=== PATIENT | male | born 1985 | race Caucasian/White ===

== ENCOUNTER 2023-06-09 13:42 | Emergency (ER) | payer OTHER, SELFPAY ==
[2023-06-09 13:51] VITALS: BP 184/118
--- NOTE | 2023-06-09 15:30 | ED.GENMED ---
History of Present Illness
General
Chief Complaint: Throat Problem
Source: patient and spouse
Exam Limitations: none
Time Seen by Provider: 06/09/23 15:18
Travel History
Have you had any contact with someone who has COVID-19?: No
Do you have any symptoms of coronavirus? Fever > 100 degrees, chills, cough, shortness of breath, sore throat, loss of taste or smell, muscle aches, or headache?: No
History of Present Illness
History of Present Illness:
37-year-old male complaining of throat pain and a foreign body sensation since midnight last night. [place] like there might be something in his throat. Vomited last evening. Symptoms have been ongoing. Seen in urgent care with a negative strep.
Sent here for globus sensation. Symptoms are not localized to 1 side more of a generalized throat symptoms. No chest pain shortness of breath nausea fever. Able to swallow liquids out difficulty. Some pain with swallowing solids
Past History
Past History
ED Past Medical History: Other (Pericarditis/Knowles's palsy/GERD)
ED Past Surgical History: Orthopedic
Review of Systems
Review of Systems
All Other Systems: Not applicable
Respiratory: Reports no symptoms
Cardiac: Reports no symptoms
ABD/GI: Reports no symptoms
Phy Exam
Physical Exam
Physical Exam:
GENERAL: Alert and oriented in no apparent distress
EYE: Orbits normal.
NECK: Supple. Mild submandibular adenopathy.
ENT: Pharynx with diffuse erythema of the tonsils and posterior pharynx and mild erythema of the uvula. Very small amount of white dots to the left tonsil easily removed with a tongue blade. No obvious KYLIE tonsillar abscess. No foreign body
CARDIAC: Regular rate and rhythm without any obvious murmurs.
LUNGS: Clear breath sounds,normal
ABDOMEN: Soft, without focal tenderness or distention
NEUROLOGICAL: Alert and oriented , grossly non-focal
SKIN: Warm and dry
PSYCH: Normal and appropriate interaction.
Course
Orders/Labs/Results
Orders:
Orders
06/09/23 15:28
EKG [Electrocardiogram (*1)] Urgent
Reason for Study: Other
Other Reason for Exam: Throat pain/hypertension
Soft Tissue, Neck [CR Soft Tissue Neck ] Urgent
Comment:
Reason For Exam: Throat pain/foreign body sensation
06/09/23 15:29
EKG- Treatment ONCE
06/09/23 17:37
Cephalexin Monohydrate [Keflex] 500 mg PO NOW STA
Vital Signs
Initial and Last Documented VS:
Initial Vital Signs
Temp Pulse Resp BP Pulse Ox
98.3 F 98 18 184/118 99
06/09/23 13:51 06/09/23 13:51 06/09/23 13:51 06/09/23 13:51 06/09/23 13:51
Last Documented Vital Signs
Temp Pulse Resp BP Pulse Ox
98.3 F 97 18 133/94 99
06/09/23 13:51 06/09/23 17:08 06/09/23 17:08 06/09/23 17:08 06/09/23 17:08
*Radiology
Radiology exam reviewed: preliminary read by ED provider (Negative) and radiology read reviewed (Negative)
*Pulse Oximetry
Patient hypoxic: no
*EKG
Interpreted by ED Provider?: Yes
Interpretation: abnormal
Comparison EKG: no comparison EKG present
Heart Rate: 68
Rate: normal
Rhythm: sinus
[place]: normal axis
Interval: normal interval
QRS Pattern: normal QRS
Ischemia: non-specific ST changes
*Critical Care Note
Total Time (30-74mins, 75-104mins- exclusive of procedures): Not Applicable
Update Note
Update Note:
Patient is remained stable and nontoxic. Clinically this is clearly a posterior pharyngeal issue. There is clear erythema to both tonsils and to the uvula. Patient has no chest pain shortness of breath nausea diaphoresis. EKG is essentially
normal. There are some nonspecific inferior changes but do not feel this is an acute cardiac issue. Blood pressure is much improved with a appropriate sized cuff. Discussed with ENT who will follow-up.
ED Attending Note
-
Portions of this chart may have been created with voice recognition software.� Occasional wrong word or��sound alike� substitutions may have occurred due to the inherent limitations of voice recognition software.
Discharge Plan
Departure
Patient Disposition: Home (Routine Discharge)
Date of Disposition: 06/09/23
Time of Disposition: 17:38
Patient with high blood pressure during this ER visit?: Yes
Discharge Problem:
PHARYNGOTONSILLITIS
Instructions: Sore Throat, Adult (DC), BLOOD PRESSURE
Prescriptions:
New
cephalexin 500 mg capsule
500 mg PO QID 7 Days Qty: 28 0RF
Referrals:
Beau Cates PA [Family Provider] -
Jamie Leong MD [Active] - Follow up in 2-3 days
Activity Restrictions/Additional Instructions:
Call the ENT doctor tomorrow morning for close follow-up
Antibiotics were called to your pharmacy
Return with increasing trouble swallowing pain with swallowing fever chest pain shortness of breath or any other unusual symptoms
Your blood pressure was elevated and should be followed up closely with your primary physician
Interventions
Interventions:
*Risk Screen - Suicide Last Done: 06/09/23 17:50
*General Assessment Last Done: 06/09/23 17:50
*Neglect/Abuse Screening Last Done: 06/09/23 17:50
ED- Fall Risk Assessment Last Done: 06/09/23 17:50
*ED COVID-19 Vaccine History Last Done: 06/09/23 17:50
*Nursing Disposition Last Done: 06/09/23 17:52
ED-EENT Assessment Last Done: 06/09/23 16:25
ED- Pulmonary Assessment Last Done: 06/09/23 16:25
Discharge Date and Time
Discharge Date/Time: 06/09/23 17:53
Print Language: CYMRO
[2023-06-09 17:08] VITALS: BP 133/94
[2023-06-09] MEDS: KEFLEX 500 MG PO (17:50)
== END 2023-06-09 17:53 | disposition home or self-care (01) ==
LOC: EMR 13:42
PROVIDERS: EMERGENCY PHYSICIAN Emergency Medicine; FAMILY PHYSICIAN Physician Assistant
DX: B00.2 Herpesviral gingivostomatitis and pharyngotonsillitis (principal); I10 Essential (primary) hypertension
CPT/HCPCS: 99284; 70360; 93005

== ENCOUNTER 2024-11-16 00:15 | Emergency (ER) | payer OTHER, SELFPAY ==
[2024-11-16 00:19] VITALS: BP 187/111
[2024-11-16 00:28] VITALS: BMI 36.2
[2024-11-16 00:29] VITALS: BP 154/87
--- NOTE | 2024-11-16 00:34 | ED.GENMED ---
History of Present Illness
General
Chief Complaint: Chest Pain
Source: patient and spouse
Exam Limitations: none
Time Seen by Provider: 11/16/24 00:26
Nursing documentation reviewed up to this point in time: agreed with
History of Present Illness
History of Present Illness:
39-year-old male presenting to the emergency department today with concerns of mid chest pressure started 1 hour ago while driving from a concert. Pain has significantly improved since. No associated nausea vomiting numbness weakness shortness of
breath diaphoresis. No radiation or referred pain.
Past History
Past History
ED Past Medical History: Other (Pericarditis/Knowles's palsy/GERD)
ED Past Surgical History: Orthopedic
Review of Systems
Review of Systems
Allergies reviewed?: Yes
All Other Systems: ROS reviewed and negative except as documented in HPI and ROS
Phy Exam
Physical Exam
Physical Exam:
GENERAL: Alert , in no apparent distress
EYE: pupils equal and reactive
NECK: Supple, no significant adenopathy.
ENT: o/p clr, mmm.
CARDIAC: Regular rate and rhythm .
LUNGS: Clear breath sounds bilaterally, no acute respiratory distress, no wheezes/rales/rhonchi
ABDOMEN: Soft, without focal tenderness, no r/g, no cvat
NEUROLOGICAL: Alert and oriented, no focal neuro deficits
SKIN: Warm and dry, skin intact.
MUSCULOSKELETAL: No edema, well perfused.
PSYCH: Normal and appropriate interaction.
Scores
Heart Score for Chest Pain Patients
STEMI patient?: No
History: Slightly or Non-Suspicious
ECG: Normal
Age: </= 45 years
Risk Factors: No Risk Factors
Troponin: </= Normal Limit
Heart Score for Chest Pain Patients: 0
Heart Score Risk: 2.5% MACE over next 6 weeks
Course
Orders/Labs/Results
Orders:
Orders
11/16/24 00:18
ECG [Electrocardiogram (*1)] Urgent
Reason for Study: Chest Pain
11/16/24 00:19
EKG- Treatment ONCE
11/16/24 00:23
Cardiac Monitoring- Treatment ONCE
IV Insert/Care/Rem.- Treatment PRN
CR Chest - 2 Views Urgent
Comment:
Reason For Exam: respiratory distress
O2 Therapy [RESP] Urgent
Titrate/Wean O2 to maintain O2 sat greater than (%): 93
Special Instructions: TO MAINTAIN CONTINUOUS O2 SATS >/= 93%
Pulse Ox/cont/shift [RESP] Urgent
Quantity: 1
Special Instructions: continuous pulse ox
11/16/24 00:33
Mag Hydrox/Al Hydrox/Simeth [Maalox] 30 ml Phenobarb/Hyoscy/Atropine/Scop [] 10 ml PO NOW
11/16/24 00:34
Complete Blood Count/With Diff Urgent
Comprehensive Metabolic Panel Urgent
NT-proBNP Urgent
Troponin I Urgent
11/16/24 00:46
Mag Hydrox/Al Hydrox/Simeth [Maalox] 30 ml .ROUTE .STK-MED ONE
Phenobarb/Hyoscy/Atropine/Scop [] 10 ml .ROUTE .STK-MED ONE
11/16/24 02:25
Electrocardiogram (*1) Urgent
Reason for Study: Chest Pain
EKG- Treatment ONCE
11/16/24 02:27
Troponin I Urgent
Abnormal Lab Results
11/16/24
00:34
Absolute Lymphs (auto) 3.5 H 10^3/uL
(1.2-3.4)
Absolute Monos (auto) 0.8 H 10^3/uL
(0.1-0.6)
Glucose 106 H mg/dl
(70-99)
ALT 53 H U/L
(0-50)
11/16/24 00:34
11/16/24 00:34
Vital Signs
Initial and Last Documented VS:
Initial Vital Signs
Temp Pulse Resp BP Pulse Ox
98.4 F 93 20 187/111 97
11/16/24 00:19 11/16/24 00:19 11/16/24 00:19 11/16/24 00:19 11/16/24 00:19
Last Documented Vital Signs
Temp Pulse Resp BP Pulse Ox
98.4 F 80 24 125/67 96
11/16/24 00:19 11/16/24 01:00 11/16/24 01:00 11/16/24 03:00 11/16/24 03:00
MDM/Problems Addressed
MDM/Problems Addressed:
39-year-old male presenting to the emergency department today with concerns of a chest pain that central chest while driving home. No recent trauma surgery mobilization no leg swelling or history of blood clots. On arrival hypertensive otherwise
vital signs are normal. No shortness of breath. No reproducible pain normal heart and lung exam initial EKG nonischemic. No signs of arrhythmia. Repeated troponin negative EKG unchanged at this point ACS very unlikely PE very unlikely, PERC
negative stable for discharge. Return precautions given.
*Pulse Oximetry
SaO2: 99
Oxygen Mode of Delivery: Room air
Patient hypoxic: no (96)
*Critical Care Note
Total Time (30-74mins, 75-104mins- exclusive of procedures): Not Applicable
ED Attending Note
-
Portions of this chart may have been created with voice recognition software.� Occasional wrong word or��sound alike� substitutions may have occurred due to the inherent limitations of voice recognition software.
Discharge Plan
Departure
Patient Disposition: Home (Routine Discharge)
Date of Disposition: 11/16/24
Time of Disposition: 03:34
Patient with high blood pressure during this ER visit?: No
Condition: Good
Covid-19: Not Applicable
Discharge Problem:
Chest pain
Instructions: Chest Pain PCP Follow Up
Prescriptions:
No Action
omeprazole [Prilosec] 40 mg Capsule,Delayed Release(Dr/Ec)
40 mg PO DAILY
citalopram [Celexa] 20 mg Tablet
20 mg PO DAILY
iron
Referrals:
Beau Cates PA [Family Provider, Family Practice]
Activity Restrictions/Additional Instructions:
You came to the emergency department today with concerns of chest pain. Here had a reassuring assessment. Please work closely with your primary care doctor and GI. Return for any worsening, new or concerning symptoms.
Interventions
Interventions:
*Risk Screen - Suicide Last Done: 11/16/24 00:19
*General Assessment Last Done: 11/16/24 00:19
*Neglect/Abuse Screening Last Done: 11/16/24 00:19
*ED- Fall Risk Assessment Last Done: 11/16/24 00:19
*ED COVID-19 Vaccine History Last Done: 11/16/24 00:19
ED- Cardiac Assessment Last Done: 11/16/24 00:39
Discharge Date and Time
Print Language: [id number]
[2024-11-16] MEDS: MAALOX 40 PO (00:47)
[2024-11-16 00:56] LABS: ALT (SGPT) 53 U/L (0-50); AST (SGOT) 32 U/L (17-59); Albumin 4.7 g/dl (3.5-5.0); Alkaline Phosphatase 76 U/L (38-126); Blood Urea Nitrogen 12 mg/dl (9-20); Calcium 9.3 mg/dl (8.4-10.2); Carbon Dioxide 27 mmol/L (22-30); Chloride 106 mmol/L (98-107); Estimated Creatinine Clearance > 125 ml/min; Glucose 106 mg/dl (70-99); Potassium 3.9 mmol/L (3.5-5.1); Sodium 140 mmol/L (135-145); Total Protein 7.3 g/dl (6.3-8.2); eGFR > 60.00
[2024-11-16 00:59] LABS: Hematocrit 40.6 % (39.0-52.0); Hemoglobin 13.9 g/dL (13.0-18.0); Mean Corp Hgb Conc. 34.2 g/dL (33.0-37.0); Mean Corpuscular Volume 82.7 fL (80.0-94.0); Nucleated Red Blood Cells % 0 % (-); Platelet Count 240 10^3/uL (130-400); Red Cell Dist. Width 12.0 % (11.5-14.5)
[2024-11-16 01:00] VITALS: BP 117/73
[2024-11-16 01:07] LABS: Troponin I < 0.012 ng/ml
[2024-11-16 02:00] VITALS: BP 126/66
[2024-11-16 03:00] VITALS: BP 125/67
[2024-11-16 03:22] LABS: Troponin I < 0.012 ng/ml
== END 2024-11-16 03:46 | disposition home or self-care (01) ==
LOC: EMR 00:15
PROVIDERS: Physician Assistant; EMERGENCY PHYSICIAN Student in an Organized Health Care Education/Training Program; FAMILY PHYSICIAN Physician Assistant
DX: R07.9 Chest pain, unspecified (principal)
CPT/HCPCS: 99285; 71046; 80053; 83880; 84484; 85025; 93005

== ENCOUNTER 2024-11-23 06:19 | Day surgery (SDC) | payer OTHER, SELFPAY | END 2024-11-23 11:22 | disposition home or self-care (01) | LOC: GI 06:19 | PROVIDERS: ATTENDING PHYSICIAN Internal Medicine Gastroenterology | DX: K22.70 Barrett's esophagus without dysplasia (principal); K29.70 Gastritis, unspecified, without bleeding; K20.90 Esophagitis, unspecified without bleeding; K44.9 Diaphragmatic hernia without obstruction or gangrene; K31.7 Polyp of stomach and duodenum; K31.89 Other diseases of stomach and duodenum | CPT/HCPCS: 43239; 88305; 88342 ==